=== PATIENT | male | born 1965 | race African-American/Black ===

== ENCOUNTER 2017-10-08 08:08 | Emergency (ER) | END 2017-10-08 10:50 | disposition home or self-care (01) ==

== ENCOUNTER 2018-01-11 15:26 | Emergency (ER) | END 2018-01-11 18:14 | disposition home or self-care (01) ==

== ENCOUNTER 2018-07-11 09:59 | Emergency (ER) | payer MEDICARE, OTHER ==
[~2018-07-11] VITALS: Ht 182.9 cm; Wt 168.0 kg
[~2018-07-11 09:59] MED LIST: ASPI-817 PO; CARV25TA97 PO; COLC0.6T49 PO; FEBU80TA PO; FURO20TA3 PO; HYDR-3980 PO; HYDR4TAB51 PO; METO-335 PO; NITR0.4T32 SL; PANT20TA3 PO; PRED20TA PO; SIMV20TA PO; TAMS0.4C2 PO
[2018-07-11 10:02] VITALS: Ht 182.9 cm; Wt 168.0 kg
--- NOTE | 2018-07-11 10:11 | ERD ---
ER Documentation Chief Complaint Chief Complaint chest pain sob one day...worsening today..bib medics HPI 53-year-old male presents for evaluation of chest pain. He is brought in by EMS, he denies fever, denies shortness of breath. Pain is described as sharp, it is waxing and waning, he had a nuclear stress test done in 2016 which was negative. ROS All systems reviewed and are negative except as per history of present illness. Medications Home Meds Active Scripts Prednisone* (Prednisone*) 20 Mg Tab, 60 MG PO DAILY for 4 Days, TAB Prov:BIANCA VANCE MD 10/08/17 Metoprolol Succinate* (Toprol XL*) 25 Mg Tab.sr.24h, 25 MG PO DAILY for 30 Days Prov:RACHAEL MERRITT 06/28/16 Reported Medications Carvedilol* (Coreg*) 25 Mg Tablet, 25 MG PO BID, #60 TAB 10/08/17 Aspirin* (Aspirin* EC) 81 Mg Tablet.dr, 81 MG PO DAILY, TAB 10/08/17 Simvastatin* (Zocor*) 20 Mg Tablet, 20 MG PO QHS, #30 TAB 10/08/17 Tamsulosin Hcl* (Tamsulosin Hcl*) 0.4 Mg Cap.er.24h, 0.4 MG PO HS, CAP 10/08/17 Furosemide* (Furosemide*) 20 Mg Tablet, 20 MG PO DAILY, #60 TAB 06/25/16 Hydrocodone/Acetaminophen ([place] 10-325 Tablet) 1 Each Tablet, 1 EACH PO DAILY PRN for PRN, TAB 06/25/16 Hydromorphone Hcl* (Dilaudid*) 4 Mg Tablet, 4 MG PO Q4H PRN for PAIN, TAB 02/08/15 Febuxostat* (Uloric*) 80 Mg Tablet, 80 MG PO DAILY 10/09/13 Pantoprazole* (Pantoprazole*) 20 Mg Tablet.dr, 20 MG PO DAILY 01/13/13 Colchicine (Colchicine) 0.6 Mg Tablet, 0.6 MG PO BID 05/23/12 Nitroglycerin* (Nitroglycerin* SL) 0.4 Mg Tab.subl, 0.4 MG SL PRN 05/23/12 Allergies Allergies: Coded Allergies: No Known Allergy (Verified , 07/11/18) PMhx/Soc History of Surgery: Yes (S/P CLOT EVACATION IN THE HEAD AND CHOLECYSTECTOMY) Anesthesia Reaction: No Hx Neurological Disorder: No Hx Respiratory Disorders: No Hx Cardiac Disorders: Yes (THN, CAD, STROKE) Hx Psychiatric Problems: No Hx Miscellaneous Medical Probl: No Hx Alcohol Use: No Hx Substance Use: No Hx Tobacco Use: No FmHx Family History: diabetes Physical Exam Vitals Vital Signs Date Temp Pulse Resp B/P (MAP) Pulse Ox O2 O2 Flow FiO2 Time Delivery Rate 07/11/18 98.3 103 20 125/67 96 Nasal 2.0 14:30 (86) Cannula 07/11/18 103 18 116/63 98 Nasal 13:40 (80) Cannula 07/11/18 98.3 86 20 106/53 98 Nasal 2.0 11:30 (70) Cannula 07/11/18 98.3 85 20 140/88 98 Room Air 11:00 (105) 07/11/18 98.3 84 20 121/68 100 Room Air 10:30 (85) 07/11/18 98.7 83 24 140/83 98 Room Air 10:07 (102) 07/11/18 98.7 98 24 140/83 98 10:02 (102) Physical Exam Const: No acute distress Head: Atraumatic Eyes: Normal Conjunctiva ENT: Normal External Ears, Nose and Mouth. Neck: Full range of motion. No meningismus. Resp: Clear to auscultation bilaterally Cardio: Regular rate and rhythm, no murmurs Abd: Soft, non tender, non distended. Normal bowel sounds Skin: No petechiae or rashes Back: No midline or flank tenderness Ext: No cyanosis, or edema Neur: Awake and alert Psych: Normal Mood and Affect Result Diagram: 07/11/18 1020 07/11/18 1020 Results 24 hrs Laboratory Tests Test 07/11/18 10:03 07/11/18 10:20 Bedside Glucose 206 mg/dL White Blood Count 10.8 10^3/ul Red Blood Count 4.92 10^6/ul Hemoglobin 12.6 g/dl Hematocrit 40.8 % Mean Corpuscular Volume 82.9 fl Mean Corpuscular Hemoglobin 25.6 pg Mean Corpuscular Hemoglobin Concent 30.9 g/dl Red Cell Distribution Width 16.2 % Platelet Count 258 10^3/UL Mean Platelet Volume 11.0 fl Immature Granulocytes % 0.300 % Neutrophils % 56.4 % Lymphocytes % 34.3 % Monocytes % 5.4 % Eosinophils % 3.1 % Basophils % 0.5 % Nucleated Red Blood Cells % 0.0 /100WBC Immature Granulocytes # 0.030 10^3/ul Neutrophils # 6.1 10^3/ul Lymphocytes # 3.7 10^3/ul Monocytes # 0.6 10^3/ul Eosinophils # 0.3 10^3/ul Basophils # 0.1 10^3/ul Nucleated Red Blood Cells # 0.0 10^3/ul Sodium Level 141 mmol/L Potassium Level 3.7 mmol/L Chloride Level 111 mmol/L Carbon Dioxide Level 22 mmol/L Anion Gap 8 Blood Urea Nitrogen 9 mg/dl Creatinine 0.62 mg/dl Est Glomerular Filtrat Rate mL/min > 60 mL/min Glucose Level 176 mg/dl Calcium Level 8.6 mg/dl Total Bilirubin 0.0 mg/dl Direct Bilirubin 0.00 mg/dl Indirect Bilirubin 0.0 mg/dl Aspartate Amino Transf (AST/SGOT) 64 IU/L Alanine Aminotransferase (ALT/SGPT) 53 IU/L Alkaline Phosphatase 79 IU/L Troponin I < 0.012 ng/ml B-Type Natriuretic Peptide 223 PG/ML Total Protein 7.3 g/dl Albumin 3.6 g/dl Globulin 3.70 g/dl Albumin/Globulin Ratio 0.97 Procedures/MDM Is a 53-year-old male presents for evaluation of chest pain. His EKG showed no evidence of acute ischemia, his chest x-ray was negative, I have a low suspicion for pneumothorax, aortic dissection, or pulmonary embolism. Given his prior ris k factors, I did recommend admission, however the patient wished to leave AGAINST MEDICAL ADVICE. He stated that he would follow up with his primary care doctor tomorrow, for further workup as needed. I encouraged him to return should any of his symptoms worsen. At discharge she was in no acute distress The patient has made the decision to leave this Emergency Department and any ongoing care against the advice of the emergency physician. The patient has been informed of and verbalized understanding of the inherent risks of this decision, including , disability and worsening condition. The patient explained to me the reason for wanting to sign out against medical advice which was he did not want to stay in the hospital, and wished to follow-up with]. The patient was given alternative therapeutic options including [recognition for outpatient stress test]. The patient has the capacity to make this decision and accepts the responsibility of leaving at this time. The patient and all necessary parties have been advised that the patient may return at any time for further evaluation or treatment. The patient's condition at time of discharge is [stable. Departure Diagnosis: Primary Impression: Chest pain Chest pain type: unspecified Qualified Codes: R07.9 - Chest pain, uns pecified Condition: Stable KIMBERLY MATTHEWS MD Jul 11, 2018 10:10
[2018-07-11 14:30] VITALS: BP 125/67; PULSE 103; RESP 20
== END 2018-07-11 16:30 | disposition left against medical advice (07) ==
LOC: E/R 09:59 → CANBEDREQ 16:35
DX: R07.9 Chest pain, unspecified (principal); I25.10 Atherosclerotic heart disease of native coronary artery without angina pectoris; Z79.82 Long term (current) use of aspirin
CPT/HCPCS: 71045; 80053; 82962; 83880; 84484; 85025; 93005